=== PATIENT | male | born 1975 | race Caucasian/White ===

== ENCOUNTER → 2022-02-11 | Outpatient (CLI) | payer BC ==
--- NOTE | 2022-02-11 11:42 | XR ---
EXAMINATION TYPE: XR elbow complete RT DATE OF EXAM: 02/11/2022 COMPARISON: NONE HISTORY: Pain FINDINGS: Three views of the elbow demonstrate no pathologic joint effusion. The osseous structures are intact . There is no acute fracture or dislocation. IMPRESSION: 1. No acute fracture or dislocation. If symptoms persist consider follow-up MRI.
== END | disposition home or self-care (01) ==
LOC: RADXRYALE 11:16
PROVIDERS: ATTEND Physician Assistant Medical
DX: M77.11 Lateral epicondylitis, right elbow (principal)

== ENCOUNTER → 2023-04-09 | Outpatient (CLI) | payer BC ==
--- NOTE | 2023-04-10 06:07 | XR ---
EXAMINATION TYPE: XR hand complete RT DATE OF EXAM: 04/09/2023 CLINICAL HISTORY: Pain. Injury one week ago. TECHNIQUE: Frontal, lateral and oblique images of the right hand are obtained. COMPARISON: None. FINDINGS: There is no acute fracture/dislocation evident in the right hand. The joint spaces in the right hand appear within normal limits. The overlying soft tissue appears unremarkable. IMPRESSION: As above.
== END | disposition home or self-care (01) ==
LOC: RADXRYALE 16:54
PROVIDERS: ATTEND Physician Assistant Medical
DX: M79.641 Pain in right hand (principal)